=== PATIENT | male | born 1950 | race Caucasian/White ===

== ENCOUNTER 2016-06-23 10:00 | Day surgery (SDC) | payer MEDICARE, OTHER ==
[2016-06-23] VITALS (8 sets, daily range): BP systolic 109–135; BP diastolic 62–78; PULSE 52–56; RESP 11–17; O2SAT 95–99
[~2016-06-23] VITALS: Ht 188 cm; Wt 107.0 kg
[~2016-06-23 10:00] MED LIST: GLIM2TAB2 PO; LUTE1CAP4 PO; Levofloxacin 500 mg/100 mL D5W IV ONE; METO25TA6 PO; TAMS0.4C98 PO; ZYL100 PO
[2016-06-23] MEDS ORDERED: fentaNYL-PF 50 mCg/mL 2 mL Inj ONE (10:01)
[2016-06-23] MEDS ORDERED: MetoCLOpramide 5 mg/mL 2 mL Inj ONE (10:01)
[2016-06-23] MEDS ORDERED: Phenylephrine/NS 100 mCg/mL 10 mL Syringe IVPUSH ONE (10:01)
[2016-06-23] MEDS ORDERED: Ondansetron 2 mg/mL 2 mL Inj ONE (10:01)
[2016-06-23] MEDS ORDERED: Propofol 10,000 mCg/mL 20 mL Inj ONE (10:01)
[2016-06-23] MEDS ORDERED: Lactated Ringer's 1,000 ML IV ONE (10:35)
[2016-06-23] MEDS ORDERED: Iopamidol-300 50 mL Inj IV ONE (11:50)
[2016-06-23] MEDS ORDERED: Lactated Ringer's 1,000 ML IV SCH (11:54)
[2016-06-23] MEDS ORDERED: Lactated Ringer's 500 ML IV PRN (11:54)
--- NOTE | 2016-06-23 11:54 | PCM.HPANE ---
Patient Data Surgeon Admitting Provider: Attending Provider:Manuel Mcclelland MD Primary Care Physician:Hunter Bean DO Other Provider:Jude Whyte Anesthesia Reason for Visit Right Kidney Stone Ht/WT & BMI Height (Feet): 6 Height (Inches): 2 Weight (Kilograms): 109.41 Body Mass Index 30.00 Allergies Coded Allergies: amoxicillin (Verified Allergy, Severe, RASH, 02/01/16) Uncoded Allergies: RABBIT SERUM (Allergy, Unknown, UNKNOWN, 07/30/15) Past Anesthesia History Anesthesia History: Denies:: Anesthesia Reactions, Difficult Intubation, Malignant Hyperthermia Diabetes History Hx Diabetes?: Yes Type of Diabetes: Type II Glycemic Control: Oral Medication MRSA MRSA: No Medications Hypertension Medication: Yes Home Meds Incl Beta Yas: Yes (metoprolol) Reported Medications Allopurinol 100 Mg [id number] Mg PO DAILY Ref 0 02/01/16 Metoprolol Tartrate 25 Mg Rebpgy24 Mg PO BID 30 Days Ref 0 07/30/15 Lutein/Zeaxanthin (Lutein-Zeaxanthin 25-5 mg Sfgl)1 Each Capsule1 Each PO UD 07/30/15 Glimepiride 2 Mg Tablet2 Mg PO DAILYAC #30 TABLET Ref 0 07/30/15 Tamsulosin (Flomax)0.4 Mg Capsule0.4 Mg PO DAILY 30 Days Ref 0 01/16/14 Discontinued Reported Medications Prednisone (PredniSONE)20 Mg Cwinmg65 Mg PO DAILY Ref 0 PT MAY WEAN WHEN READY 02/01/16 Potassium Chloride 10 Meq Capsule.er5 Meq PO DAILY 30 Days Ref 0 TAKE WITH FOOD 07/30/15 Furosemide (Lasix)20 Mg Tzfndn75 Mg PO DAILY 30 Days Ref 0 07/30/15 Amlodipine 10 Mg Cvyepy79 Mg PO DAILY Ref 0 07/30/15 History History of ENT Problems?: No HEENT History: Positive for:: Sinus Problem (HAY FEVER) Denies:: Cataracts Difficult Intubation Dysphagia Glaucoma (macular degeneration) Hearing Problem TMJ Denture Type: Partial- Upper Hx of Heart Problems?: Yes Cardiovascular History: Positive for:: Hypertension Denies:: Cardiac Surgery Chest Pain Congestive Heart Failure Edema Heart Murmur Irregular Heartbeat Pacemaker Thrombophlebitis Valvular Heart Disease Hx of Respiratory Problem?: Yes Respiratory History: Positive for:: Asthma (childhood only) Denies:: COPD Chest Surgery Dyspnea Emphysema Hemoptysis Oxygen Administration Pneumonia Tuberculosis Use of C-PAP Machine Use of Inhalers / NEBS Hx Neurologic Problems?: Yes Neurological History: Positive for:: Headaches Denies:: Alzheimer's Disease CVA Dementia Dizziness Multiple Sclerosis Parkinson's Disease Seizures Hx of GI Problems?: No Gastrointestinal History: Denies:: Diverticulitis (history of) Gastroesphageal Reflux Gastrointestinal Bleeding Heartburn Hepatitis Hiatal Hernia Rectal Bleeding Other GI Pertinent History: umbilical hernia repair Hx of Problems?: Yes Genitourinary History: Positive for:: Kidney Stones (right stones current admission problem) Denies:: HX of Hemodialysis (CKD stage IV) Urinary Tract Infection HX of Peritoneal Dialysis: No Other Pertinent History: hx of left radical nephrectomy for renal mass 2015 Male Hx: Positive for:: Prostate Problems (BPH) Testicular Surgery (hx repair testicular torsion) Denies:: Scrotal Mass Skin History: Denies:: History Skin Disorders? Pressure Ulcers Hx Musculoskeletal Problems?: Yes Musculoskeletal History: Positive for:: Osteoarthritis (hands) Denies:: Back Injury Fibromyalgia Joint Replacement Musculoskeletal Trauma Hx of Psycho/Social Problems?: No Psycho Social History: Denies:: Anxiety Hx Depression Hx Surgeries?: Yes (testicular torsion, hernia repair, mult kidney stones, L rad nephrectomy) Hx Any Other Health Problems?: Yes Other History: Positive for:: Hospitalization Denies:: Cancer Endocrine Disease Thyroid Disease History Blood Transfusions: Denies:: Accept Blood Products? Blood Transfuse Reaction Blood Transfusions Hx Diabetes: Yes Hx Alcohol Use: NoHx Substance Use: No Smoking Status: Former Smoker Have You Smoked inLast 12 mo: No Stop/Bang S-Snoring: Do You Snore Loudly: No T-Tired: feel tired, fatigued: No O-Obsered: Observed not breath: No P-Blood Pressure: treated: Yes B- Body Mass Index > 35 kg/m2: No A- Age over 50: Yes N- Neck Large Circumference: No G- Gender Male: Yes GORDON Total Score: 3 Risk Assessment Category Category 1A: Patient has history of documented sleep apnea, and HAS NOT received any narcotic, sedative or anesthesia administration during this stay. Category 1B: Patient has history of documented sleep apnea, and HAS received any narcotic , sedative or anesthesia administration during this stay Category 2: Patient has SUSPECTED Obstructive Sleep Apnea, and HAS received any narcotic , sedative or anesthesia administration during this stay. Category 3: Patient has SUSPECTED Obstructive Sleep Apnea and HAS NOT received narcotic, sedative or anesthesia administration during this stay. Category 4: Outpatient in Procedural Areas with known sleep apnea or who screen positive for High Risk via the STOP/BANG questionnaire. Exam Exam General Appearance: Alert, Oriented X3, Cooperative, No Acute Distress HEENT/AIRWAY: MP 2, Neck Movement (FROM), Mouth Opening (3 FBMO) Lungs: Clear to Auscultation, Normal Air Movement Heart: Exam Unremarkable, Regular Rate/Rhythm, No Murmurs/Rubs/Gallops Plan Impression Patient chart reviewed, patient interviewed and anesthestic plan with risks, benefits, and alternatives discussed, and informed consent obtained. NPO Status: 0430 WATER WITH MEDS ASA Physical Status: ASA3 Severe Disease Anesthetic Plan: GA Bene/Risks/Altern/Consents: Yes HP Complete Prior to Induction: Yes Isaías Ramirez MD Jun 23, 2016 09:38
[2016-06-23] MEDS ORDERED: EPHEDrine Sulfate 50 mg/mL Inj IVPUSH PRN (11:55)
[2016-06-23] MEDS ORDERED: Ondansetron 2 mg/mL 2 mL Inj IVPUSH PRN (11:55)
[2016-06-23] MEDS ORDERED: hydrALAZINE 20 mg/mL Inj IVPUSH PRN (11:55)
[2016-06-23] MEDS ORDERED: Phenylephrine 10,000 mCg/mL Inj IVPUSH PRN (11:55)
[2016-06-23] MEDS ORDERED: MetoCLOpramide 5 mg/mL 2 mL Inj IVPUSH PRN (11:55)
[2016-06-23] MEDS ORDERED: Atropine 0.4 mg/mL Inj IVPUSH PRN (11:55)
[2016-06-23] MEDS ORDERED: fentaNYL-PF 50 mCg/mL 2 mL Inj IVPUSH PRN (11:55)
[2016-06-23] MEDS ORDERED: HYDROmorphone 1 mg/mL Inj IVPUSH PRN (11:55)
[2016-06-23] MEDS ORDERED: Labetalol 5 mg/mL 4 mL Inj IV PRN (11:55)
[2016-06-23] MEDS ORDERED: Belladonna Alk-Opium 60 mg Rectal Suppository RECTAL ONE ×3 (12:37→12:55)
--- NOTE | 2016-06-23 13:06 | PCM.SURGPO ---
Immediate Operative Note Date of Surgery: Jun 23, 2016 Pre Operative Diagnosis R renal calculus, microhematuria Post Operative Diagnosis R renal calculus, microhematuria Procedure Cystoscopy, R ureteroscopy, Holmium laser lithotripsy, basket extraction of calculus fragments, and R ureteral stent placement Surgeon and Medical Chief Technician Surgeon: Manuel Mcclelland MD Assistants: None Findings Cystoscopy revealed bilobar prostatic hypertrophy, mildly trabeculated bladder, no bladder tumors, lesions, or calculi, and B/L ureteral orifices in normal position. R semi-rigid ureteroscopy revealed normal R distal and R mid ureter. A 12/14F x 35cm ureteral access sheath was placed in R ureter. R flexible ureteroscopy revealed normal R proximal ureter, an approx. 7-8mm calculus in a R upper-mid pole calyx, and otherwise normal R renal collecting system. Holmium laser lithotripsy and basket extraction of calculus fragments were performed. R ureteral stent was placed. Complications There were no periprocedural complications identified. Surgical Specimen Removed: Yes Specimen sent to Pathology: No Surgical Specimen description: R renal calculus fragments sent to lab for stone analysis Anesthetic Administered: GA Grafts, Implants: Other (28cm x 5F R ureteral JJ stent (no string)) Output, Estimated Blood Loss: <5 Blood Admin during surgery: No Additional information Patient to be discharged home when stable, to return to see me in 1 week for cystoscopy, stent removal, and post-op visit, with a KUB 1 hour before appt. Manuel Mcclelland MD Jun 23, 2016 13:05
--- NOTE | 2016-06-23 13:30 | PCM.DISURG ---
Surgical Discharge Instruction Date of Service Jun 23, 2016 Dates of Hospitalization Date of Hospital Admission Jun 23, 2016 Providers Admitting Physician: Manuel Mcclelland MD Primary Care Physician: Hunter Bean DO Attending Physician: Manuel Mcclelland MD Discharge Diagnosis Discharge Diagnosis R renal calculus, microhematuria Post Operative diagnosis R renal calculus, microhematuria Diet Discharge Diet: No restrictions, Other (Drink 10-12 8oz. glasses (3 liters) of fluids per day) Activity Discharge Activity-General: No restrictions, No driving while taking narcotic Dressing and Incisional Care Hygiene: May shower Follow Up Plan Follow-up Provider (F9): Manuel Mcclelland MD Follow-up appointment: Weeks (1 week for cystoscopy, stent removal, and post- op visit, with a KUB 1 hour before appt.) Call your provider for: Fever, Chills, Vomiting, Other (Pain uncontrolled by pain medications) Manuel Mcclelland MD Jun 23, 2016 13:30
[2016-06-23] MEDS ORDERED: oxyCODONE-Acetamin 5-325 mg Tablet PO PRN (13:35)
--- NOTE | 2016-06-23 16:12 | PCM.ANEP1 ---
Post Anesthesia Phase 1 PACU Phase 1 Assessment Date of Service: Jun 23, 2016 Vital Signs Vital Signs Date Time Temp Pulse Resp B/P Pulse Ox O2 Delivery O2 Flow Rate FiO2 06/23/16 13:58 52 13 117/62 98 Room Air 06/23/16 13:40 53 13 121/70 96 Room Air 06/23/16 13:30 36.0 56 11 118/64 95 Room Air 06/23/16 13:15 36.1 54 16 109/70 99 Room Air 06/23/16 13:10 55 13 115/65 99 Simple Mask 10 06/23/16 13:05 56 12 116/63 99 Simple Mask 10 06/23/16 13:03 36.3 121/65 06/23/16 10:36 36.4 54 17 135/78 99 Room Air Anesthetic Administered: GA Level of Alertness: Awake, talking WELCH's with Equal Strength: Yes Pain: No Nausea or Vomiting: No Oxygen Delivery: Room Air Lungs: Clear to Auscultation, Normal Air Movement Dermatome Level: Full Sensation Isaías Ramirez MD Jun 23, 2016 16:12
--- NOTE | 2016-06-23 16:12 | PCM.ANEP2 ---
Post Anesthesia Evaluation ASA/CMS Post Anesthesia VS in Patient's Normal Range?: Yes Resp Stable; Airway Patent?: Yes CV Function & Hydration Stable: Yes Mental Status Recovered?: Yes Pain control Satisfactory?: Yes N/V Control Satisfactory?: Yes Isaías Ramirez MD Jun 23, 2016 16:12
--- NOTE | 2016-06-23 16:16 | DRSVH ---
PROCEDURE: X-RAY RETROGRADE UROGRAPHY INDICATIONS: STONES AND STENT TECHNIQUE: 3 intra-operative images acquired by the Urology service. COMPARISON: [facility], CT, CT KUB, 06/14/2016, 10:20. FINDINGS: 3 submitted images demonstrate opacification of the right renal collecting system which louisa ears mildly hydronephrotic. No intraluminal filling defects seen. Ureteral stent was placed. IMPRESSION: Limited exam demonstrating mild right hydronephrosis and placement of ureteral stent. Dictated by: Nicolas Yen [facility] Interpreted: Angle Hunt MD on 06/23/2016 at 16:16 Transcribed by: NADIA on 06/23/2016 at 16:16 Approved by: Angle Hunt MD, PhD on 06/23/2016 at 16:35
--- NOTE | 2016-06-25 10:19 | OP ---
[address] [address] OPERATIVE REPORT PATIENT: PK JACKSON : 1950 MR#: [id number] ADMIT: 06/23/2016 JOB ID: [id number] DATE OF SURGERY: 06/23/2016 PREOPERATIVE DIAGNOSIS(ES): 1. Right renal calculus. 2. Microhematuria. POSTOPERATIVE DIAGNOSIS(ES): 1. Right renal calculus. 2. Microhematuria. PROCEDURE: 1. Cystoscopy. 2. Right ureteroscopy. 3. Holmium laser lithotripsy. 4. Basket extraction of calculus fragments. 5. Right ureteral stent placement. SURGEON: Manuel Mcclelland MD. BOAT PILOT: None. ANESTHESIA: General. ESTIMATED BLOOD LOSS: Less than 5 mL. SPECIMENS: Right renal calculus fragments sent to the lab for stone analysis. DRAINS: A 28 cm x 5-[place] Islander right ureteral double-J stent. COMPLICATIONS: None. CONDITION: Stable. FINDINGS: Cystoscopy revealed bilobar prostatic hypertrophy, mildly trabeculated bladder, no bladder tumors, lesions, or calculi, and bilateral ureteral orifices in normal position. Right semi-rigid ureteroscopy revealed normal right distal and right mid ureter. A 12/14-[place] Islander x 35 cm ureteral access sheath was placed in the right ureter. Right flexible ureteroscopy revealed normal right proximal ureter, an approximately 7-8 mm calculus in a right upper to mid pole calyx and an otherwise normal right renal collecting system. Holmium laser lithotripsy and basket extraction of calculus fragments were performed. Right ureteral stent was placed. INDICATIONS: The patient is a 65-year-old male with microhematuria and a history of CT scan showing a 7 mm right renal calculus with a solitary right kidney. The patient now presents for cystoscopy, right ureteroscopy, holmium laser lithotripsy, basket extraction of calculus fragments and right ureteral stent placement. DESCRIPTION OF PROCEDURE: The patient was brought to the operating room and placed supine on the operating room table. The patient was given Levaquin IV antibiotics. Sequential compression device boots were placed. General anesthesia was administered. The patient was brought down into dorsal lithotomy position. The patient was prepped and draped in a standard surgical fashion. A 22-[place] Islander rigid cystoscope was placed in the distal urethra without difficulty. Cystoscopy revealed normal distal urethra, bilobar prostatic hypertrophy, mildly trabeculated bladder, no bladder tumors, lesions, or calculi, and bilateral ureteral orifices in normal position. An angle tip UltraTrack guidewire was passed into the right ureteral orifice and passed up the right ureter into the right renal pelvis. The rigid cystoscope was removed from the patient. The guidewire was secured to the drape with a Frances clamp as a safety wire. A semi-rigid ureteroscope was passed through urethra and bladder and into the right ureteral orifice with the assistance of a PTFE guidewire. Right semi-rigid ureteroscopy revealed normal right distal and right mid ureter. PTFE guidewire was advanced up the right ureter into the right renal pelvis. Semi-rigid ureteroscope was removed from the patient. A 12/14-[place] Islander x 35 cm ureteral access sheath was passed over the PTFE guidewire through the urethra and bladder and up the right ureter into the right mid ureter. The inner portion of the sheath and PTFE guidewire were removed from the patient. A flexible ureteroscope was passed through the ureteral access sheath into the right ureter. Right flexible ureteroscopy revealed normal right proximal ureter, an approximately 7-8 mm calculus in a right upper to mid pole renal calyx, and an otherwise normal right renal collecting system. Holmium laser lithotripsy was used to fragment the calculus into small fragments using a 200 micron holmium laser fiber. Basket extraction of all significant 2 mm or larger calculus fragments was performed using an NCircle Nitinol basket. Calculus fragments were sent to the lab for stone analysis. The right renal pelvis and all calyces were visualized. No significant 2 mm or larger calculus fragments were seen. Of note, power irrigation was performed of the right renal pelvis and all calyces to aid in irrigation of calculus fragments out of the renal collecting system. A small amount of contrast was instilled into the right renal collecting system to illuminate the right renal collecting system to aid in stent placement. The flexible ureteroscope and ureteral access sheath were backed down the right ureter and the entire right ureter was visualized. No significant 2 mm or larger calculus fragments were seen. The flexible ureteroscope and ureteral access sheath were removed from the patient leaving the safety guidewire in place. The rigid cystoscope was passed over the safety guidewire through the urethra and into bladder. A 28 cm x 5-[place] Islander ureteral double-J stent, with the stent string removed prior to stent placement, was passed over the guidewire, through the cystoscope and passed up the right ureter and placed so that the proximal pigtail was located in the right renal pelvis and the distal pigtail was located in the bladder. Guidewire was removed. Correct positioning of the stent was confirmed both fluoroscopically and under direct visualization using the cystoscope. Good efflux of contrast could be seen draining from the distal end of the stent into the bladder, further confirming correct stent positioning. The bladder was drained via the cystoscope. Cystoscope was removed from the patient. The skin was cleaned and dried. The patient was placed in supine position. The patient was awakened from general anesthesia and transferred to the recovery room in stable condition. The patient tolerated the procedure well. Plan is for the patient to be discharged home when stable, and to return to see me in the office in one week for cystoscopy, stent removal and postoperative visit, with a KUB 1 hour prior to the appointment. PASCUAL
[2016-06-29 14:09] LABS: Stone Color Brown (.)
[2016-09-06] MEDS ORDERED: ATOR20TA PO (15:01)
== END 2016-06-23 23:59 | disposition home or self-care (01) ==
LOC: SAS 10:00
PROVIDERS: ATTEND Urology
DX: N20.0 Calculus of kidney (principal); R31.29 Other microscopic hematuria; Z90.5 Acquired absence of kidney; N18.4 Chronic kidney disease, stage 4 (severe); I12.9 Hypertensive chronic kidney disease with stage 1 through stage 4 chronic kidney disease, or unspecified chronic kidney disease; E11.9 Type 2 diabetes mellitus without complications; J45.909 Unspecified asthma, uncomplicated
CPT/HCPCS: 52356; 74420; 82360; J2250; J2370; J2405; J2765; J7120; Q9967

== ENCOUNTER 2016-10-19 08:00 | Day surgery (SDC) | payer MEDICARE, OTHER ==
[~2016-10-19] VITALS: Ht 182.9 cm; Wt 104.5 kg
[~2016-10-19 08:00] MED LIST changes: +0.9% Sodium Chloride 1,000 ML IV SCH; +ATOR20TA PO; -Levofloxacin 500 mg/100 mL D5W IV ONE; +Sodium Chloride LOK Flush 10 mL Syringe IV PRN; +fentaNYL-PF 50 mCg/mL 2 mL Inj IVPUSH PRN
[2016-10-19 08:25] VITALS: BP 155/87; PULSE 67; RESP 15; O2SAT 97
[2016-10-19 09:48] VITALS: BP 146/78; PULSE 60; RESP 14; O2SAT 99
[2016-10-19 09:56] VITALS: BP 143/79; PULSE 56; RESP 12; O2SAT 99
--- NOTE | 2016-10-19 10:16 | ENDO ---
[address] [address] ENDOSCOPY PROCEDURE PATIENT: PK JACKSON : 1950 MR#: [id number] ADMIT: 10/19/2016 JOB ID: [id number] OPERATION TITLE: Colonoscopy with hot snare polypectomy. PREOPERATIVE DIAGNOSIS(ES): Colorectal cancer screening. POSTOPERATIVE DIAGNOSIS(ES): 1. Mild sigmoid diverticulosis. 2. A 1 cm sigmoid polyp, removed by hot snare polypectomy. ANESTHESIA: Fentanyl 50 mcg, Versed 2.5 mg IV administered. COMPLICATIONS: None. BLOOD LOSS: Minimal. DESCRIPTION OF PROCEDURE: After risks and benefits were explained to the patient, informed consent was obtained. After anesthesia was administered, colonoscope was inserted per the rectum to the cecum. Mucosa carefully examined. Prep of the patient was excellent. After the procedure was done, the scope was withdrawn and the procedure terminated. FINDINGS: Upon inspection of the anus, no masses, hemorrhoids, ulcers, or fissures that were seen. Throughout the entire examination, there was mild sigmoid diverticulosis. There is also a 1 cm sigmoid polyp, removed by hot snare polypectomy. Retroflexion was normal. IMPRESSIONS: 1. Mild sigmoid diverticulosis. 2. A 1 cm sigmoid polyp, removed by hot snare polypectomy. RECOMMENDATIONS: Await pathology results. If tubular adenoma, then repeat colonoscopy in three years.
--- NOTE | 2016-10-20 11:37 | PATH ---
SURGICAL PATHOLOGY Attending Physician:Brian Roque MD CASE STATUS: Signed Out PATIENT NAME: PK JACKSON PID: [id number] : 1950 DATE COLLECTED:10/19/2016 16:38 SPECIMEN: Colon, Biopsy CLINICAL HISTORY: 1. SIGMOID POLYP FINAL DIAGNOSIS: 1.SIGMOID POLYP: TUBULAR ADENOMA. ICD10 CODE D12.5 GROSS DESCRIPTION: The specimen is received in one formalin filled container labeled with the patient's name, sublabeled "sigmoid polyp" and consists of a 0.7 x 0.7 x 0.6 CM portion of tissue. The specimen is trisected and entirely submitted in one cassette. 10/19/2016 DAC MICRO DESCRIPTION: See diagnosis. ICD-9 CODES: CPT CODES: 1: 82824 Electronically Signed Out Lexi Hanley MD [facility] Pathology [facility], [place] [address] Technical component performed at [facility], [address] [place] [address] Ave[address], [place], [address]
== END 2016-10-19 23:59 | disposition home or self-care (01) ==
LOC: END 08:00
PROVIDERS: ATTEND Internal Medicine Gastroenterology
DX: Z12.11 Encounter for screening for malignant neoplasm of colon (principal); D12.5 Benign neoplasm of sigmoid colon; K57.30 Diverticulosis of large intestine without perforation or abscess without bleeding; I12.9 Hypertensive chronic kidney disease with stage 1 through stage 4 chronic kidney disease, or unspecified chronic kidney disease; E11.22 Type 2 diabetes mellitus with diabetic chronic kidney disease; N18.4 Chronic kidney disease, stage 4 (severe); J45.909 Unspecified asthma, uncomplicated; Z90.5 Acquired absence of kidney; Z87.442 Personal history of urinary calculi; Z79.84 Long term (current) use of oral hypoglycemic drugs
CPT/HCPCS: 45385; 88305; G0500; J2250; J3010; J7030